=== PATIENT | male | born 1955 | race Caucasian/White ===

== ENCOUNTER 2022-02-09 09:43 | Outpatient (CLI) | payer MEDICARE, SELFPAY ==
--- NOTE | ~2022-02-09 | US_ITS ---
EXAMINATION: US aorta [facility] scr[facility] DATE: 02/09/2022 10:20 INDICATION: Abdominal aortic aneurysm screening. Encounter for screening for cardiovascular disorders . TECHNIQUE: Grayscale, color Doppler, and pulsed Doppler images of the aorta and common iliac arteries were obtained. COMPARISON: None. FINDINGS: The aorta is normal in caliber. The right common iliac artery is normal in caliber. The left common i liac artery is normal in caliber. IMPRESSION: 1. No abdominal aortic aneurysm. Reviewed, dictated and finalized at location A.
== END 2022-02-09 09:44 | disposition home or self-care (01) ==
PROVIDERS: PCP Family Medicine; Visit Provider Nurse Practitioner Family
DX: Z13.6 Encounter for screening for cardiovascular disorders (principal); Z87.891 Personal history of nicotine dependence
CPT/HCPCS: 76706

== ENCOUNTER 2023-11-25 15:47 | Emergency (ER) | payer MEDICARE, SELFPAY ==
--- NOTE | ~2023-11-25 | XR_ITS ---
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 RESULT: Lines, tubes, and devices: None. Lungs and pleura: No focal consolidation or pneumothorax. Minimal left posterior costophrenic angle blunting. Cardiomediastinal silhouette: Stable. Other: No acute osseous or upper abdominal finding. Cholelithiasis. IMPRESSION: Trace left pleural effusion versus chronic pleural scarring. Reviewed, dictated and finalized at location K. MING CUTTER MACHINE
[2023-11-25 15:48] VITALS: BP 178/90; PULSE 83; RESP 18; TEMP 36.6; O2SAT 100
--- NOTE | 2023-11-25 15:48 | ECG_ITS ---
Measurements Intervals [place] Rate: 85 P: 40 [place]: 143 QRS: -28 QRSD: 115 T: 80 QT: 359 QTc: 428 Interpretive Statements SINUS RHYTHM INTRAVENTRICULAR CONDUCTION DELAY ANTEROSEPTAL INFARCT, AGE INDETERMINATE BORDERLINE ST-T WAVE ABNORMALITY- HIGH LATERAL LEADS BASELINE ARTIFACT- I, II, AVR ABNORMAL ECG NO PREVIOUS ECG AVAILABLE FOR COMPARISON Electronically Signed On 11-25-2023 17:07:21 [employer] [employer] by Jayme Marshall D.O.
--- NOTE | 2023-11-25 16:16 | ED.GENADULT ---
HPI - General Adult General Chief complaint: Chest Pain <Rosemarie Goode February, Last Filed: 12/03/23 12:00> Stated complaint: Chest Pain <Rosemarie Goode February, Last Filed: 12/03/23 12:00> Time Seen by Provider: 11/25/23 22:44 <Rosemarie Goode February, Last Filed: 12/03/23 12:00> History of Present Illness HPI narrative: Focused HPI: [address] James is a 68 y/o male who presents with complaints of left sided chest tightness that started Saturday Denies SOB / no radiating pain. Reports he has hx of HTN/ DM/ HLD - Denies hx of [place] but states that he has a strong family hx of heart attacks. Rates the severity of chest tightness at a 4/10 GENERAL: Well-appearing, well-nourished, and in no acute distress. HEAD: Normocephalic, atraumatic. CHEST: Clear to auscultation. ?No respiratory distress. HEART: Regular rate and rhythm.? NEURO: ?Alert and oriented x3 Patient screened in triage and initial orders placed.? ?Additional care and disposition to be based upon?diagnostic testing and treatment. <Rosemarie Goode February, Last Filed: 12/03/23 12:00> Related Data Allergies/adverse reactions: Allergies Allergy/AdvReac Type Severity Reaction Status Date / Time No Known Allergies Allergy Verified 12/02/23 09:41 <Rosemarie Goode February, - Last Filed: 12/03/23 12:00> Review of Systems Review of Systems: All systems reviewed & are unremarkable except as noted in HPI and below <Rosemarie Goode February, Last Filed: 12/03/23 12:00> PMFSH Past Medical History Medical History: Medical History BMI 31.0-31.9,adult BMI 32.0-32.9,adult BMI 33.0-33.9,adult Body mass index (BMI) of 30 to 39 in adult Hernia <Rosemarie Goode February, - Last Filed: 12/03/23 12:00> Surgical History Surgical History: Surgical History H/O colonoscopy H/O total cystectomy <Rosemarie CarrilloZackary Gavin SODA FLAKER - Last Filed: 12/03/23 12:00> Family History Family History: Family History Mother Family history of heart disease in male family member before age 55 Pacemaker Father Family history of heart disease in male family member before age 55 Sibling Pacemaker Sibling , traumatic accident Diabetes mellitus <Rosemarie CarrilloZackary Gavin SODA FLAKER - Last Filed: 12/03/23 12:00> Social History Social History: Social History Smoking status: Former smoker Tobacco type: cigarettes Second hand tobacco smoke exposure: No Smoking end date: 04/26/95 Alcohol intake: former Substance use: current Substance use type: marijuana Lack of Transportation: No Lack of Food: Never True Current Housing: I Have Housing Concerned About Future Housing: No Difficulty Paying Gas/Electric Bills: No Difficulty Paying for Meds: No Currently Unemployed: No Education: High School Diploma/GED Difficulty w/ Childcare or Family Care: No Living arrangements: with family Occupation/Education: retired Additional occupation/education comments: [employer]-[place] Gender identity (if verbalized by the patient): Male <Rosemarie CarrilloZackary Gavin, SODA FLAKER - Last Filed: 12/03/23 12:00> Exam Narrative: APPEARANCE: No apparent distress. patient is anxious, Head: atraumatic. EYES: EOMI, NOSE: Atraumatic NECK: Trachea midline RESPIRATORY: No increased rate of breathing, clear to auscultation CARDIOVASCULAR: RRR, no peripheral edema ABDOMINAL: Non-distended, soft nontender MUSCULOSKELETAl: No obvious deformities NEURO: Alert. Moving 4/4 extremities SKIN:: Warm, dry. Normal color PSYCHIATRIC: Normal affect <Rajan Perez MD - Last Filed: 11/26/23 00:28> Course Vital Signs Vital signs: Vital Signs Temperature 36.6 C 11/25/23 15:48 Pulse Rate 83 11/25/23 15:48 Resp
[2023-11-25 16:19] LABS: Basophils Percent Auto 0.4 % (0.2-1.2); Eosinophils Absolute Auto 0.1 K/mm3 (0-0.3); Eosinophils Percent Auto 1.7 % (0-4.4); Hematocrit 48.7 % (42.0-52.0); Hemoglobin 16.3 g/dL (14.0-18.0); Immature Granulocyte Absolute 0.03 K/mm3 (0.00-0.031); Immature Granulocyte Percent A 0.4 % (0-0.5); Lymphocytes Absolute Auto 1.53 K/mm3 (0.9-3.2); Lymphocytes Percent Auto 19.7 % (18.3-44.2); Mean Corpuscular HGB Conc 33.5 g/dl (32-36); Mean Corpuscular Hemoglobin 28.6 pg (26-34); Mean Corpuscular Volume 85.4 fl (80-100); Mean Platelet Volume 10.4 fl (7.4-10.4); Monocytes Absolute Auto 0.5 K/mm3 (0.1-0.6); Monocytes Percent Auto 6.2 % (2.6-8.5); Neutrophils Absolute Auto 5.6 K/mm3 (1.3-6.7); Neutrophils Percent Auto 71.6 % (45.5-73.1); Platelet Count Result 165 k/mm3 (150-375); Red Cell Distribution Width 12.9 % (11.5-14.5); White Blood Count 7.8 K/mm3 (4.5-10.0)
[2023-11-25 16:22] LABS: Alanine Aminotransferase 42 U/L (6-50); Albumin Level 4.7 g/dL (3.5-5.1); Alkaline Phosphatase 78 U/L (38-126); Anion Gap 11 mmol/L (8-16); Aspartate Amino Transferase 41 U/L (17-59); Bilirubin,Total 1.2 mg/dL (0.2-1.3); Blood Urea Nitrogen 22 mg/dL (9-20); Calcium 10.1 mg/dL (8.4-10.2); Carbon Dioxide 22 mmol/L (22-30); Chloride 106 mmol/L (98-107); Estimated CRCL calculation 82 ml/min; Estimated Glomerular Filt Rate > 60; Glucose 118 mg/dL (65-110); Lipase 95 U/L (23-300); Potassium 4.5 mmol/L (3.4-5.0); Sodium 139 mmol/L (137-145)
[2023-11-25 16:24] LABS: Prothrombin Time 13.1 Seconds (11.1-14.7)
[2023-11-25 16:25] LABS: Partial Thromboplastin Time 25.7 SECONDS (22.3-36.8)
[2023-11-25 16:34] LABS: Troponin I < 0.012 ng/mL (0.000-0.034)
--- NOTE | 2023-11-25 20:26 | ECG_ITS ---
Measurements Intervals [place] Rate: 85 P: 29 [place]: 149 QRS: 90 QRSD: 105 T: -20 QT: 346 QTc: 413 Interpretive Statements SINUS RHYTHM ANTEROSEPTAL INFARCT, AGE INDETERMINATE T WAVE ABNORMALITY IN INFERIOR LEADS- CONSIDER ISCHEMIA ABNORMAL ECG COMPARED TO ECG 11/25/2023 15:53:42 T WAVE ABNORMALITY NOW PRESENT Electronically Signed On 11-26-2023 6:18:13 [employer] by Jayme Marshall D.O.
[2023-11-25 20:32] VITALS: BP 147/87; PULSE 83; RESP 18; O2SAT 100
[2023-11-25 21:01] LABS: Troponin I < 0.012 ng/mL (0.000-0.034)
[2023-11-25 22:36] VITALS: PULSE 79
[2023-11-25 22:37] VITALS: BP 165/84; PULSE 91; RESP 14; TEMP 36.6; O2SAT 99
[2023-11-25 22:38] VITALS: O2SAT 99
--- NOTE | 2023-11-25 22:42 | PC.NURSE ---
Per EDP 6 hour troponin and 324mg baby aspirin not needed.
[2023-11-25 23:59] VITALS: BP 182/94; PULSE 75; RESP 12; O2SAT 100
== END 2023-11-26 00:32 | disposition home or self-care (01) ==
PROVIDERS: Emergency Medicine; Emergency Provider Emergency Medicine; PCP Family Medicine
DX: R07.9 Chest pain, unspecified (principal); Z87.891 Personal history of nicotine dependence
CPT/HCPCS: 36415; 71046; 80053; 83690; 84484; 85025; 85610; 85730; 93005; 99284

== ENCOUNTER 2025-10-12 11:20 | Outpatient (CLI) | payer MEDICARE, SELFPAY ==
--- NOTE | ~2025-10-12 | MR_ITS ---
EXAM/PROCEDURE: MR brain/brain stem wo/w con HISTORY: F03.90 - Unspecified dementia, unspecified severity, with... COMPARISON: None available. TECHNIQUE: Pre and postcontrast enhanced brain MRI performed FINDINGS: Moderate diffuse volume loss disproportionately affecting the ventricles with mild ventricular megaly. Mild scattered Ventricle T2 weighted hyperintense white matter foci. No abnormal enhancing lesions or masses. No restricted diffusion or acute ischemic event. No acute bleed. Brainstem and cerebellum as well as periorbital paranasal calvarial structures appear normal. Vascular flow voids patent at the skull base. IMPRESSION: Chronic changes as above with mild ventriculomegaly likely associated with chronic volume loss cervical query if patient has presentation suggestive of NPH. No acute ischemic event, hemorrhage or mass. Reviewed, dictated and finalized at location A. ER SUPERVISOR IMPRESSION: Chronic changes as above with mild ventriculomegaly likely associated with gun synchronizer lotus volume loss cervical query if patient has presentation suggestive of NPH. N o acute ischemic event, hemorrhage or mass.
== END 2025-10-12 11:21 | disposition home or self-care (01) ==
LOC: MICIMG 11:21
PROVIDERS: PCP Family Medicine
DX: G93.89 Other specified disorders of brain (principal); F03.90 Unspecified dementia, unspecified severity, without behavioral disturbance, psychotic disturbance, mood disturbance, and anxiety; R41.3 Other amnesia
CPT/HCPCS: 70553; A9577